=== PATIENT | female | born 1980 | race Caucasian/White ===

== ENCOUNTER → 2017-05-17 | Outpatient (CLI) | payer OTHER ==
[~2017-05-17] MED LIST: MOTRIN800 MG PO; PRENATAL TABLE1 EAC3 PO; VICODIN 5-3001 EACH PO; ZYRTEC10 M3 PO
== END | disposition home or self-care (01) ==
LOC: CDC 12:03
DX: I10 Essential (primary) hypertension (principal)
CPT/HCPCS: 93000

== ENCOUNTER 2017-11-01 09:01 | Inpatient (IN) | payer OTHER ==
[~2017-11-01] VITALS: Ht 167.6 cm; Wt 94.8 kg
[2017-11-01] VITALS (14 sets, daily range): BP systolic 120–150; BP diastolic 70–86
[2017-11-01 10:33] LABS: BASOPHIL (%) 0.3 % (0-1); EOSINOPHIL (%) 0.1 % (0-5); HEMOGLOBIN 11.8 G/DL (11.9-15.5); IMMATURE GRANULOCYTE (%) 0.5 % (0.0-0.7); LYMPHOCYTE (%) 15.8 % (15-42); LYMPHOCYTE COUNT 1.6 K/uL (1.0-2.8); MCH 30.3 PG (29.0-34.0); MCHC 33.7 G/DL (30.0-36.0); MONOCYTE (%) 5.9 % (3-12); MONOCYTE COUNT 0.6 K/uL (0-0.8); NEUTROPHIL (%) 77.4 % (45-76); NEUTROPHIL COUNT 7.9 K/uL (1.8-6.4); PLATELET COUNT 194 K/uL (156-360); RBC DIS.WIDTH-CV 12.3 % (11.8-14.6); RBC DIS.WIDTH-SD 40.2 % (39-53); RED BLOOD COUNT 3.89 M/uL (3.80-5.20); WHITE BLOOD COUNT 10.2 K/uL (4.1-10.2)
[2017-11-01 10:47] LABS: ALBUMIN 2.9 G/DL (3.2-4.8); ALKALINE PHOSPHATASE 119 IU/L (3-129); ALT (GPT) 26 IU/L (3-49); AST (GOT) 20 IU/L (2-34); CHLORIDE 107 MEQ/L (99-109); CREATININE 0.7 MG/DL (0.6-1.3); GFR ESTIMATE (CALCULATED) > 59 mL/min/; GLUCOSE 134 mg/dL (70-99); POTASSIUM 3.6 MEQ/L (3.7-5.4); SODIUM 136 MEQ/L (136-147); TOTAL BILIRUBIN 0.3 MG/DL (0.0-1.0); TOTAL PROTEIN 5.6 G/DL (6.4-8.3); UREA NITROGEN (BUN) 12 mg/dL (9-23)
[2017-11-01 12:26] LABS: UR CREATININE CONCENTRATION 125.3 MG/DL
[2017-11-01] MEDS ORDERED: ADDERALL30 MG PO (15:27)
[2017-11-01] MEDS ORDERED: ZOLOFT25 MG PO (15:27)
[2017-11-01] MEDS ORDERED: MAGNESIUM250 MG PO (15:28)
[2017-11-01] MEDS ORDERED: PRENA1 CHEW TA1.4 MG PO (15:32)
[2017-11-01] MEDS ORDERED: NOVOLIN N100 UNITS/ SC (15:38)
[2017-11-01 18:18] LABS: BASOPHIL (%) 0.2 % (0-1); EOSINOPHIL (%) 0 % (0-5); HEMATOCRIT 35.1 % (36.0-46.0); HEMOGLOBIN 12.1 G/DL (11.9-15.5); IMMATURE GRANULOCYTE (%) 0.6 % (0.0-0.7); LYMPHOCYTE (%) 7.6 % (15-42); LYMPHOCYTE COUNT 0.9 K/uL (1.0-2.8); MCH 31.1 PG (29.0-34.0); MCHC 34.5 G/DL (30.0-36.0); MCV 90.2 FL (83-99); MONOCYTE (%) 1.4 % (3-12); MONOCYTE COUNT 0.2 K/uL (0-0.8); NEUTROPHIL (%) 90.2 % (45-76); NEUTROPHIL COUNT 11.2 K/uL (1.8-6.4); PLATELET COUNT 185 K/uL (156-360); RBC DIS.WIDTH-CV 12.2 % (11.8-14.6); RBC DIS.WIDTH-SD 39.9 % (39-53); RED BLOOD COUNT 3.89 M/uL (3.80-5.20); WHITE BLOOD COUNT 12.4 K/uL (4.1-10.2)
[2017-11-02] VITALS (22 sets, daily range): BP systolic 113–164; BP diastolic 57–93
[2017-11-03] VITALS (16 sets, daily range): BP systolic 104–145; BP diastolic 61–75
[2017-11-04] VITALS (15 sets, daily range): BP systolic 110–169; BP diastolic 57–80
[2017-11-04] MEDS ORDERED: MOTRIN800 MG PO (05:02)
[2017-11-04] MEDS ORDERED: PERCOCET 5/31 TABLET PO (05:02)
[2017-11-05] VITALS (8 sets, daily range): BP systolic 138–169; BP diastolic 77–88
[2017-11-05 07:59] LABS: BASOPHIL (%) 0.3 % (0-1); BASOPHIL COUNT 0.1 K/uL (0-0.1); EOSINOPHIL (%) 0.3 % (0-5); EOSINOPHIL COUNT 0.1 K/uL (0-0.3); HEMATOCRIT 32.5 % (36.0-46.0); HEMOGLOBIN 10.6 G/DL (11.9-15.5); IMMATURE GRANULOCYTE (%) 1.3 % (0.0-0.7); LYMPHOCYTE (%) 12.8 % (15-42); MCH 30.8 PG (29.0-34.0); MCHC 32.6 G/DL (30.0-36.0); MCV 94.5 FL (83-99); MONOCYTE (%) 8.9 % (3-12); MONOCYTE COUNT 1.4 K/uL (0-0.8); NEUTROPHIL (%) 76.4 % (45-76); NEUTROPHIL COUNT 12.2 K/uL (1.8-6.4); PLATELET COUNT 182 K/uL (156-360); RBC DIS.WIDTH-CV 12.9 % (11.8-14.6); RBC DIS.WIDTH-SD 44.4 % (39-53); RED BLOOD COUNT 3.44 M/uL (3.80-5.20); WHITE BLOOD COUNT 15.9 K/uL (4.1-10.2)
[2017-11-06 03:02] VITALS: BP 144/69
[2017-11-06 19:00] VITALS: BP 142/70
[2017-11-07 07:04] VITALS: BP 128/81
[2017-11-07] MEDS ORDERED: LABETALOL HCL200 MG PO (08:40)
[2017-11-07 11:10] VITALS: BP 127/85
== END 2017-11-07 12:36 | disposition home or self-care (01) | DRG 765 ==
LOC: LDRP-OP 09:01 → 2WEST 09:02
PROVIDERS: Midwife; Obstetrics & Gynecology; Obstetrics & Gynecology Gynecology
DX: O24.424 Gestational diabetes mellitus in childbirth, insulin controlled (principal); O10.02 Pre-existing essential hypertension complicating childbirth; O76 Abnormality in fetal heart rate and rhythm complicating labor and delivery; Z3A.37 37 weeks gestation of pregnancy; Z37.0 Single live birth; E66.9 Obesity, unspecified; O99.214 Obesity complicating childbirth; Z68.30 Body mass index [BMI] 30.0-30.9, adult; O61.0 Failed medical induction of labor; O62.0 Primary inadequate contractions
CPT/HCPCS: 80053; 82570; 82948; 84156; 85025; 85025 91; 86850; 86900; 86901; 88307; G0378; J0690; J0702; J1200; J1815; J2250; J2274; J2405; J3010; J7120